=== PATIENT | male | born 1995 | race Caucasian/White ===

== ENCOUNTER 2021-04-03 10:14 | Emergency (ER) | payer OTHER ==
[~2021-04-03] VITALS: Ht 182.8 cm; Wt 136.3 kg
[2021-04-03 10:58] LABS: BASOPHILS # (AUTO) 0.1 10^3/uL (0.0-0.1); BASOPHILS % (AUTO) 1 % (0-10); EOSINOPHILS # (AUTO) 0.1 10^3/uL (0.0-0.3); EOSINOPHILS % (AUTO) 1 % (0-10); HEMATOCRIT 47 % (40-54); HEMOGLOBIN 17.1 g/dL (13.3-17.7); LYMPHOCYTES # (AUTO) 2.9 10^3/uL (1.0-4.0); LYMPHOCYTES % (AUTO) 30 % (12-44); MEAN CORPUSCULAR HEMOGLOBIN 32 pg (25-34); MEAN CORPUSCULAR HGB CONC 36 g/dL (32-36); MEAN CORPUSCULAR VOLUME 88 fL (80-99); MONOCYTES # (AUTO) 0.5 10^3/uL (0.0-1.0); MONOCYTES % (AUTO) 6 % (0-12); NEUTROPHILS % (AUTO) 62 % (42-75); PLATELET COUNT 240 10^3/uL (130-400); WHITE BLOOD COUNT 9.6 10^3/uL (4.3-11.0)
[2021-04-03] MEDS ORDERED: KETOROLAC 30 MG/ML VIAL IVP ONE (11:00)
[2021-04-03 11:03] LABS: CHLORIDE 103 MMOL/L (98-107); POTASSIUM 3.9 MMOL/L (3.6-5.0); SODIUM 141 MMOL/L (135-145)
[2021-04-03 11:04] LABS: CALCIUM 9.7 MG/DL (8.5-10.1)
[2021-04-03 11:05] LABS: GLUCOSE 109 MG/DL (70-105); TOTAL PROTEIN 8.1 GM/DL (6.4-8.2)
[2021-04-03 11:07] LABS: BILIRUBIN,TOTAL 0.6 MG/DL (0.1-1.0); CARBON DIOXIDE 24 MMOL/L (21-32)
[2021-04-03 11:09] LABS: ALKALINE PHOSPHATASE 64 U/L (40-136); CREATININE SERUM 1.03 MG/DL (0.60-1.30); GFR ESTIMATED > 60
[2021-04-03 11:10] LABS: BUN/CREATININE RATIO 12; LIPASE 24 U/L (8-78)
[2021-04-03 11:12] LABS: ALANINE AMINOTRANSFERASE 157 U/L (0-55)
[2021-04-03 11:19] LABS: PROTHROMBIN TIME PATIENT 13.3 SEC (12.2-14.7)
--- NOTE | 2021-04-03 11:22 | ED Chest Pain ---
General Chief Complaint: Chest Pain Stated Complaint: SOB,N/V Nursing Triage Note: AMB TO ROOM ACCOMPIED [facility] DEPT PATIENT REPORTS ONSET OF CHEST PAIN AT 9AM THE FEELING LIKE HE CAN'T GET A DEEP BREATH. R HAND UNCUFFED AND FEET RESTRAINT LEFT ON BY [facility] DEPT. Nursing Sepsis Screen: No Definite Risk Source: patient Exam Limitations: no limitations History of Present Illness Date Seen by Provider: Apr 03, 2021 Time Seen by Provider: 10:40 Initial Comments This 26-year-old young man is incarcerated and brought to the emergency department by the [facility] department with complaints of chest pain, shortness of breath, cough, headache, diarrhea, and epigastric pain. He was arrested early this morning and remains in the custody of the [facility] department with a guard present. Pain is pleuritic in nature causing patient to splint his respirations. Allergies and Home Medications Allergies Coded Allergies: No Known Drug Allergies (Unverified , 04/03/21) Home Medications Famotidine 20 Mg Tablet, 20 MG PO BID Prescribed by: KERRI GUZMAN on 04/03/21 1451 Ondansetron 4 Mg Tab.rapdis, 4 MG SL Q4H PRN for NAUSEA/VOMITING Prescribed by: KERRI GUZMAN on 04/03/21 1451 Patient Home Medication List Home Medication List Reviewed: Yes Review of Systems Review of Systems Constitutional: no symptoms reported EENTM: No Symptoms Reported Respiratory: See HPI Cardiovascular: No Symptoms Reported Gastrointestinal: See HPI Genitourinary: No Symptoms Reported Musculoskeletal: no symptoms reported Skin: no symptoms reported Psychiatric/Neurological: See HPI Endocrine: No Symptoms Reported Hematologic/Lymphatic: No Symptoms Reported Past Pnkkzfe-[id number]-Tndhcj Hx Past Med/Social Hx: Reviewed Nursing Past Med/Soc Hx Patient Social History Alcohol Use: Occasionally Uses Smoking Status: Never a Smoker Recent Infectious Disease Expo: No Past Medical History Surgeries: Yes Gallbladder Respiratory: No Cardiac: No Neurological: No Reproductive Disorders: No Genitourinary: No Gastrointestinal: No Musculoskeletal: No Endocrine: No HEENT: No Cancer: No Psychosocial: No Integumentary: No Physical Exam Vital Signs Vital Signs - First Documented 04/03/21 10:30 Temp 36.3 Pulse 104 Resp 18 B/P (MAP) 134/93 (107) Pulse Ox 96 Capillary Refill : Less Than 3 Seconds Height, Weight, BMI Height: '" Weight: lbs. oz. kg; 40.00 BMI Method: General Appearance: No Apparent Distress, WD/WN HEENT: Normal ENT Inspection Respiratory: Lungs Clear, Normal Breath Sounds, No Accessory Muscle Use, No Respiratory Distress, Other (Anterior chest wall tender to palpation) Cardiovascular: Regular Rate, Rhythm, No Edema, No Murmur Gastrointestinal: Normal Bowel Sounds, Soft, Other (Epigastrium tender to palpation) Extremity: Normal Inspection, No Pedal Edema Neurologic/Psychiatric: Alert, Oriented x3, No Motor/Sensory Deficits, Normal Mood/Affect, fruit express agent II-XII Norm as Tested Skin: Normal Color, Warm/Dry Progress/Results/Core Measures Results/Orders Lab Results Laboratory Tests Test 04/03/21 10:38 04/03/21 11:00 04/03/21 11:45 Range/Units White Blood Count 9.6 4.3-11.0 10^3/uL Red Blood Count 5.35 4.30-5.52 10^6/uL Hemoglobin 17.1 13.3-17.7 g/dL Hematocrit 47 40-54 % Mean Corpuscular Volume 88 80-99 fL Mean Corpuscular Hemoglobin 32 25-34 pg Mean Corpuscular Hemoglobin Concent 36 32-36 g/dL Red Cell Distribution Width 12.5 10.0-14.5 % Platelet Count 240 130-400 10^3/uL Mean Platelet Volume 10.0 9.0-12.2 fL Immature Granulocyte % (Auto) 1 % Neutrophils (%) (Auto) 62 42-75 % Lymphocytes (%) (Auto) 30 12-44 % Monocytes (%) (Auto) 6 0-12 % Eosinophils (%) (Auto) 1 0-10 % Basophils (%) (Auto) 1 0-10 % Neutrophils # (Auto) 6.0 1.8-7.8 10^3/uL Lymphocytes # (Auto) 2.9 1.0-4.0 10^3/uL Monocytes # (Auto) 0.5 0.0-1.0 10^3/uL Eosinophils # (Auto) 0.1 0.0-0.3 10^3/uL Basophils # (Auto) 0.1 0.0-0.1 10^3/uL Immature Granulocyte # (Auto) 0.1 0.0-0.1 10^3/uL Sodium Level 141 135-145 MMOL/L Potassium Level 3.9 3.6-5.0 MMOL/L Chloride Level 103 98-107 MMOL/L Carbon Dioxide Level 24 21-32 MMOL/L Anion Gap 14 5-14 MMOL/L Blood Urea Nitrogen 12 7-18 MG/DL Creatinine 1.03 0.60-1.30 MG/DL Estimat Glomerular Filtration Rate > 60 BUN/Creatinine Ratio 12 Glucose Level 109 H 70-105 MG/DL Calcium Level 9.7 8.5-10.1 MG/DL Corrected Calcium 8.5-10.1 MG/DL Magnesium Level 2.0 1.6-2.4 MG/DL Total Bilirubin 0.6 0.1-1.0 MG/DL Aspartate Amino Transf (AST/SGOT) 71 H 5-34 U/L Alanine Aminotransferase (ALT/SGPT) 157 H 0-55 U/L Alkaline Phosphatase 64 40-136 U/L Myoglobin 97.6 H 10.0-92.0 NG/ML Troponin I < 0.028 <0.028 NG/ML C-Reactive Protein High Sensitivity 0.39 0.00-0.50 MG/DL Total Protein 8.1 6.4-8.2 GM/DL Albumin 5.0 H 3.2-4.5 GM/DL Lipase 24 8-78 U/L Influenza Type A (RT-PCR) Not Detected Not Detecte Influenza Type B (RT-PCR) Not Detected Not Detecte SARS-CoV-2 RNA (RT-PCR) Not Detected Not Detecte Prothrombin Time 13.3 12.2-14.7 SEC INR Comment 1.0 0.8-1.4 Activated Partial Thromboplast Time 29 24-35 SEC D-Dimer < 0.27 0.00-0.49 UG/ML Urine Color YELLOW Urine Clarity CLEAR Urine pH 7.0 5-9 Urine Specific [place] 1.025 H 1.016-1.022 Urine Protein 2+ H NEGATIVE Urine Glucose (UA) NEGATIVE NEGATIVE Urine Ketones NEGATIVE NEGATIVE Urine Nitrite NEGATIVE NEGATIVE Urine Bilirubin NEGATIVE NEGATIVE Urine Urobilinogen 0.2 < = 1.0 MG/DL Urine Leukocyte Esterase NEGATIVE NEGATIVE Urine RBC (Auto) TRACE-I NEGATIVE Urine RBC NONE /HPF Urine WBC NONE /HPF Urine Squamous Epithelial Cells NONE /HPF Urine Crystals NONE /LPF Urine Amorphous Sediment LARGE NIKHIL URATES H /LPF Urine Bacteria FEW H /HPF Urine Casts NONE /LPF Urine Mucus NEGATIVE /LPF Urine Culture Indicated NO Urine Opiates Screen NEGATIVE NEGATIVE Urine Oxycodone Screen NEGATIVE NEGATIVE Urine Methadone Screen NEGATIVE NEGATIVE Urine Propoxyphene Screen NEGATIVE NEGATIVE Urine Barbiturates Screen NEGATIVE NEGATIVE Ur Tricyclic Antidepressants Screen NEGATIVE NEGATIVE Urine Phencyclidine Screen NEGATIVE NEGATIVE Urine Amphetamines Screen NEGATIVE NEGATIVE Urine Methamphetamines Screen NEGATIVE NEGATIVE Urine Benzodiazepines Screen NEGATIVE NEGATIVE Urine Cocaine Screen NEGATIVE NEGATIVE Urine Cannabinoids Screen POSITIVE H NEGATIVE My Orders Orders - KERRI GAYTAN MD Cbc With Automated Diff (04/03/21 10:49) Magnesium (04/03/21 10:49) Chest 1 View, Ap/Pa Only (04/03/21 10:49) Ekg Tracing (04/03/21 10:49) Comprehensive Metabolic Panel (04/03/21 10:49) Myoglobin Serum (04/03/21 10:49) Protime With Inr (04/03/21 10:49) Partial Thromboplastin Time (04/03/21 10:49) O2 (04/03/21 10:49) Monitor-Rhythm Ecg Trace Only (04/03/21 10:49) Lipid Panel (04/04/21 06:00) Ed Iv/Invasive Line Start (04/03/21 10:49) Fibrin Degradation Products (04/03/21 10:49) Troponin I (04/03/21 10:49) Covid 19 Inhouse Test (04/03/21 10:49) Influenza A And B By Pcr (04/03/21 10:49) Ketorolac Injection (Toradol Injection) (04/03/21 11:00) Lipase (04/03/21 10:49) Hs C Reactive Protein (04/03/21 10:49) Drug Screen Stat (Urine) (04/03/21 10:49) Ondansetron Injection (Zofran Injectio (04/03/21 12:00) Lidocaine 2% Viscous 15 Ml (Xylocaine Vi (04/03/21 12:00) Antacid Suspension (Mylanta Suspension (04/03/21 12:00) Famotidine Injection (Pepcid Injection) (04/03/21 11:46) Ua Culture If Indicated (04/03/21 12:25) Ct Chest/Abdomen/Pelvis W (04/03/21 12:33) Iohexol Injection (Omnipaque 350 Mg/Ml 1 (04/03/21 13:15) Received Contrast (Hold Metformin- Contr (04/03/21 13:15) Ns (Ivpb) (Sodium Chloride 0.9% Ivpb Bag (04/03/21 13:15) Acetaminophen Tablet (Tylenol Tablet) (04/03/21 15:00) Medications Given in ED Current Medications Medications Dose Ordered Sig/Sohan Route Start Time Stop Time Status Last Admin Dose Admin Al Hydrox/Mg Hydrox/Simethicone 30 ml ONCE ONCE PO 04/03/21 12:00 04/03/21 12:01 DC 04/03/21 11:59 30 ML Iohexol 100 ml ONCE ONCE IV 04/03/21 13:15 04/03/21 13:16 DC 04/03/21 13:18 100 ML Ketorolac Tromethamine 30 mg ONCE ONCE IVP 04/03/21 11:00 04/03/21 11:01 DC 04/03/21 11:03 30 MG Lidocaine HCl 15 ml ONCE ONCE PO 04/03/21 12:00 04/03/21 12:01 DC 04/03/21 11:59 15 ML Ondansetron HCl 4 mg ONCE ONCE IVP 04/03/21 12:00 04/03/21 12:01 DC 04/03/21 11:59 4 MG Sodium Chloride 100 ml ONCE ONCE IV 04/03/21 13:15 04/03/21 13:16 DC 04/03/21 13:19 80 ML Vital Signs/I&O 04/03/21 10:30 Temp 36.3 Pulse 104 Resp 18 B/P (MAP) 134/93 (107) Pulse Ox 96 Blood Pressure Mean: 107 Progress Progress Note : Progress Note Initial work-up was unremarkable. EKG was normal. Troponin was negative. Chest pain seemed more pleuritic in nature as he was splinting with inspiration and complained of pain with breathing. D-dimer was negative. Blood work was unremarkable in regard to his abdominal pain. Toradol was given, but patient stated this did not improve his pain much. Patient stated Pepcid, GI cocktail, and Zofran did not alleviate his pain or tenderness. I offered him further work-up with CT imaging. Patient desired to proceed with CT exam. I did express to him risk of radiation exposure, and he elected to proceed. CT of the chest, abdomen and pelvis was obtained without any significant abnormalities identified. Patient was given Tylenol for additional pain relief. I provided an update to the corrections nurse. Patient did state he thought there was some blood in his diarrhea. He did not produce any further stools to Hemoccult test. I did offer a digital rectal to obtain Hemoccult which he declined. This was communicated to the corrections nurse. 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 Initial ECG Impression Date: Apr 03, 2021 Initial ECG Impression Time: 10:31 Initial ECG Rate: 92 Initial ECG Rhythm: Normal Sinus Initial ECG Intervals: Normal Initial ECG Impression: Normal Comment Normal sinus rhythm with no ST elevation or depression. No abnormal intervals or axis deviation. Diagnostic Imaging Diagonstic Imaging: Xray Plain Films/CT/US/NM/MRI: chest Comments Chest x-ray viewed by me and report reviewed. See report below: NAME: DAVIDAVINAYAK [facility] REC#: [id number] PT STATUS: REG ER : 1995 PHYSICIAN: KERRI GAYTAN MD ADMIT DATE: 04/03/21/ER Signed Date of Exam:04/03/21 CHEST 1 VIEW, AP/PA ONLY Indication: Chest pain COMPARISON: No previous study is available for comparison at this time. FINDINGS: Heart size and pulmonary vasculature are within normal limits, and the lungs are clear, bilaterally. IMPRESSION: Unremarkable chest. Dictated by: Dictated on workstation # [id number] Dict: 04/03/21 1142 Trans: 04/03/21 1143 [id number] Interpreted by: TASHA ROBISON MD Electronically signed by: TASHA ROBISON MD 04/03/21 1143 Diagonstic Imaging: CT Plain Films/CT/US/NM/MRI: chest, abdomen, pelvis Comments CT chest, abdomen and pelvis viewed by me and report reviewed. See report bel ow: NAME: ANAVINAYAK [facility] REC#: [id number] PT STATUS: REG ER : 1995 PHYSICIAN: KERRI GAYTAN MD ADMIT DATE: 04/03/21/ER Draft Date of Exam:04/03/21 CT CHEST/ABDOMEN/PELVIS W PROCEDURE: CT chest, abdomen, and pelvis with contrast. TECHNIQUE: Multiple contiguous axial images were obtained through the chest, abdomen, and pelvis after the administration of intravenous contrast. Auto Exposure Controls were utilized during the CT exam to meet ALARA standards for radiation dose reduction. INDICATION: 26-year-old male, sudden onset of chest pain earlier today, feeling like he cannot take a deep breath. Upper abdominal pain. CORRELATION STUDY: None. FINDINGS: CT CHEST: Heart size is normal. No disproportionate right heart strain. No pericardial effusion. Thoracic aortic contour is unremarkable. Some motion artifact over the ascending aorta limits assessment. Large central pulmonary embolus is not suggested. This examination is not protocoled for PE evaluation. No pathologically enlarged mediastinal lymph nodes. Lung lobo are clear. No infiltrate, effusion, or pneumothorax. Visualized osseous structures are unremarkable. CT ABDOMEN and PELVIS: Liver is mildly enlarged with mild to moderate severity steatosis. Gallbladder absent. No bile duct dilatation. The pancreas, spleen, and adrenal glands are unremarkable. Kidneys are with normal enhancement. No hydronephrosis or obstruction. No ureteric calcification. Abdominal aorta is normal in contour. Central pulmonary arteries are patent. Stomach is relatively collapsed. No small bowel obstruction. Colon is largely collapsed, particularly distally, with resultant wall thickening. Normal appendix is present positioned just adjacent to the right hepatic lobe. No ascites and/or free air. Urinary bladder is decompressed. Osseous structures are unremarkable. IMPRESSION: CT CHEST: Negative for acute abnormality of the chest. It is noted that this examination is not protocoled for specific PE evaluation. CT ABDOMEN and PELVIS: 1. Negative for acute abnormality about the abdomen and/or pelvis. 2. Hepatomegaly with hepatic steatosis. Cholecystectomy changes. Dictated on workstation # [id number] Dict: 04/03/21 1414 Trans: 04/03/21 1427 [id number] Interpreted by: ZA CHRISTENSEN DO Departure Impression Primary Impression: Pleuritic chest pain Additional Impressions: Diarrhea Qualified Codes: R19.7 - Diarrhea, unspecified Upper abdominal pain Disposition: 01 HOME, SELF-CARE Condition: Improved Departure-Patient Inst. Decision time for Depature: 14:48 Referrals: NO,LOCAL PHYSICIAN (PCP/Family) Primary Care Physician Patient Instructions: Chest Pain That Is Not Caused by the Heart (DC), Severe Abdominal Pain, Adult (DC) Add. Discharge Instructions: Adhere to a noncarbonated clear liquid diet for the next 24 hours. Use Pepcid as prescribed for antacid therapy. You may use Zofran as prescribed for nausea and vomiting. Use Tylenol up to 1000 mg every 6 hours as needed for pain. Return to care if symptoms worsen. All discharge instructions reviewed with patient and/or family. Voiced understanding. Scripts Ondansetron (Ondansetron Odt) 4 Mg Tab.rapdis 4 MG SL Q4H PRN for NAUSEA/VOMITING, #10 TAB Prov: KERRI GAYTAN MD 04/03/21 Famotidine (Pepcid) 20 Mg Tablet 20 MG PO BID, #60 TAB Prov: KERRI GAYTAN MD 04/03/21 Copy Copies To 1: JOSE GOODRICH JOSHUA T MD Apr 03, 2021 11:22
--- NOTE | 2021-04-03 11:44 | Diagnostic Imaging Report ---
Indication: Chest pain COMPARISON: No previous study is available for comparison at this time. FINDINGS: Heart size and pulmonary vasculature are within normal limits, and the lungs are clear, bilaterally. IMPRESSION: Unremarkable chest. Dictated by: Dictated on workstation # [id number]
[2021-04-03] MEDS ORDERED: FAMOTIDINE 20MG/2ML IV (PEPCID) IV STA (11:46)
[2021-04-03] MEDS ORDERED: ONDANSETRON 4 MG/2 ML (SDV) Z0FRAN IVP ONE (12:00)
[2021-04-03] MEDS ORDERED: LIDOCAINE 2% VISCOUS 15 ML UDC PO ONE (12:00)
[2021-04-03] MEDS ORDERED: ANTACID SUSP 30 ML UDC (MYLANTA) PO ONE (12:00)
[2021-04-03 12:08] LABS: AMPHETAMINE SCREEN, URINE NEGATIVE (NEGATIVE); BARBITURATE SCREEN URINE NEGATIVE (NEGATIVE); BENZODIAZEPINES SCREEN URINE NEGATIVE (NEGATIVE); CANNABINOID SCREEN, URINE POSITIVE (NEGATIVE); COCAINE SCREEN URINE NEGATIVE (NEGATIVE); METHADONE STAT NEGATIVE (NEGATIVE); METHAMPHETAMINE SCREEN URINE S NEGATIVE (NEGATIVE); OPIATE SCREEN URINE NEGATIVE (NEGATIVE); OXYCODONE STAT NEGATIVE (NEGATIVE); PROPOXYPHENE STAT NEGATIVE (NEGATIVE); TRICYCLIC ANTIDEPRESSANTS SCRE NEGATIVE (NEGATIVE)
[2021-04-03] MEDS ORDERED: NS 100 ML (IVPB) BAG IV ONE (13:15)
[2021-04-03] MEDS ORDERED: HOLD METFORMIN - RECEIVED CONTRAST 20 ML VIAL IV SCH (13:15)
[2021-04-03] MEDS ORDERED: IOHEXOL 350 MG/ML 100 ML (OMNIPAQUE 350) VIAL IV ONE (13:15)
[2021-04-03 13:38] LABS: BILIRUBIN,URINE NEGATIVE (NEGATIVE); CLARITY,URINE CLEAR; COLOR,URINE YELLOW; GLUCOSE, URINE (UA) NEGATIVE (NEGATIVE); KETONES,URINE NEGATIVE (NEGATIVE); LEUKOCYTE ESTERASE ,URINE NEGATIVE (NEGATIVE); NITRITE,URINE NEGATIVE (NEGATIVE); PROTEIN,URINE 2+ (NEGATIVE)
[2021-04-03 13:49] LABS: AMORPHOUS SEDIMENT,UR LARGE AMOR URATES /LPF; BACTERIA,URINE FEW /HPF
--- NOTE | 2021-04-03 14:27 | Diagnostic Imaging Report ---
PROCEDURE: CT chest, abdomen, and pelvis with contrast. TECHNIQUE: Multiple contiguous axial images were obtained through the chest, abdomen, and pelvis after the administration of intravenous contrast. Auto Exposure Controls were utilized during the CT exam to meet ALARA standards for radiation dose reduction. INDICATION: 26-year-old male, sudden onset of chest pain earlier today, feeling like he cannot take a deep breath. Upper abdominal pain. CORRELATION STUDY: None. FINDINGS: CT CHEST: Heart size is normal. No disproportionate right heart strain. No pericardial effusion. Thoracic aortic contour is unremarkable. Some motion artifact over the ascending aorta limits assessment. Large central pulmonary embolus is not suggested. This examination is not protocoled for PE evaluation. No pathologically enlarged mediastinal lymph nodes. Lung lobo are clear. No infiltrate, effusion, or pneumothorax. Visualized osseous structures are unremarkable. CT ABDOMEN and PELVIS: Liver is mildly enlarged with mild to moderate severity steatosis. Gallbladder absent. No bile duct dilatation. The pancreas, spleen, and adrenal glands are unremarkable. Kidneys are with normal enhancement. No hydronephrosis or obstruction. No ureteric calcification. Abdominal aorta is normal in contour. Central pulmonary arteries are patent. Stomach is relatively collapsed. No small bowel obstruction. Colon is largely collapsed, particularly distally, with resultant wall thickening. Normal appendix is present positioned just adjacent to the right hepatic lobe. No ascites and/or free air. Urinary bladder is decompressed. Osseous structures are unremarkable. IMPRESSION: CT CHEST: Negative for acute abnormality of the chest. It is noted that this examination is not protocoled for specific PE evaluation. CT ABDOMEN and PELVIS: 1. Negative for acute abnormality about the abdomen and/or pelvis. 2. Hepatomegaly with hepatic steatosis. Cholecystectomy changes. Dictated by: Dictated on workstation # [id number]
[2021-04-03] MEDS ORDERED: FAMO-119 PO (14:51)
[2021-04-03] MEDS ORDERED: ONDA4TAB11 SL (14:51)
[2021-04-03] MEDS ORDERED: ACETAMINOPHEN 500 MG TAB (TYLENOL) PO ONE (15:00)
[2021-04-03 15:05] VITALS: BP 140/75
== END 2021-04-03 15:05 | disposition home or self-care (01) ==
LOC: ER 10:18
DX: R07.1 Chest pain on breathing (principal); R07.89 Other chest pain; R19.7 Diarrhea, unspecified; R10.13 Epigastric pain
CPT/HCPCS: 36415; 71045; 71260; 74177; 80053; 80306; 81000; 83690; 83735; 83874; 84484; 85025; 85379; 85610; 85730; 86141; 87636; 93005; 93041